=== PATIENT | male | born 1995 | race African-American/Black ===

== ENCOUNTER 2018-09-01 20:27 | Emergency (ER) | payer SELFPAY ==
[~2018-09-01] VITALS: Ht 180.3 cm; Wt 68.0 kg
[2018-09-01 20:56] VITALS: BP 126/70
--- NOTE | 2018-09-01 21:35 | PHYS DOC ---
Adult General Chief Complaint Chief Complaint: TESTICULAR PAIN OR INJURY HPI HPI Patient is a 22 year old male presents for evaluation of right-sided testicular pain for 3 weeks. He states was seen at [facility] emergency room within the last couple of weeks, had an ultrasound and was told it was negative. He left a urine sample and never heard whether his STD testing came back. He is not having any dysuria, urgency, frequency, urethral discharge. (EZ DOLAN APRN) Review of Systems Review of Systems Constitutional: Denies fever or chills [] Eyes: Denies change in visual acuity, redness, or eye pain [] HENT: Denies nasal congestion or sore throat [] Respiratory: Denies cough or shortness of breath [] Cardiovascular: No additional information not addressed in HPI [] GI: Denies abdominal pain, nausea, vomiting, bloody stools or diarrhea [] : Denies dysuria or hematuria , complains of RT testicular pain [] Musculoskeletal: Denies back pain or joint pain [] Integument: Denies rash or skin lesions [] Neurologic: Denies headache, focal weakness or sensory changes [] Endocrine: Denies polyuria or polydipsia [] All other systems were reviewed and found to be within normal limits, except as documented in this note. (EZ DOLAN APRN) Allergies Allergies Allergies Coded Allergies Type Severity Reaction Last Updated Verified No Known Drug Allergies 09/01/18 No (JACK LEIGH MD) Physical Exam Physical Exam Constitutional: Well developed, well nourished, no acute distress, non-toxic appearance. [] Abdomen: Bowel sounds normal, soft, no tenderness, no masses, no pulsatile masses. [] : NORMAL NONTENDER TESTES BILAT, NO TENDERNESS TO CORDS, NORMAL PENIS EXAM, NO URETHRAL DISCHARGE Skin: Warm, dry, no erythema. [] Back: No tenderness, no CVA tenderness. [] Extremities: No tenderness, no cyanosis, no clubbing, ROM intact, no edema. [] Neurologic: Alert and oriented X 3, normal motor function, normal sensory function, no focal deficits noted. [] Psychologic: Affect normal, judgement normal, mood normal. [] (EZ DOLAN APRN) Current Patient Data Vital Signs Vital Signs Date Time Temp Pulse Resp B/P (MAP) Pulse Ox O2 Delivery O2 Flow Rate FiO2 09/01/18 20:56 97.9 59 14 126/70 (88) 98 Room Air 97.9 (JACK LEIGH MD) EKG EKG [] (EZ DOLAN APRN) Radiology/Procedures Radiology/Procedures [] (EZ DOLAN APRN) Course & Med Decision Making Course & Med Decision Making Pertinent Labs and Imaging studies reviewed. (See chart for details) [Discussed with patient need for testicular ultrasound, urine sample, and will repeat STD testing. Patient initially agrees that states doesn't think that he needs a ultrasound because has had one at [facility] recently. Shortly after my exam, the since nurse notified me that patient has decided he does not want any workup for that testicular pain today, he has signed AMA paperwork. Patient understands that he is welcome to come back to the emergency room for evaluation.] (EZ DOLAN APRN) Course & Med Decision Making Staff Physician Addendum: I was working in the ER during the course of this patient's visit. I was available for consultation as needed, but I was not directly involved in the care of this patient. (JACK LEIGH MD) Dragon Disclaimer Dragon Disclaimer This electronic medical record was generated, in whole or in part, using a voice recognition dictation system. (EZ DOLAN APRN) Departure Departure Impression: Primary Impression: Testicular pain, right Disposition: 07 AGAINST MEDICAL ADVICE Referrals: UNKNOWN PCP NAME (PCP) Patient Instructions: Testicular Problems and Self-Exam EZ DOLAN APRN Sep 01, 2018 21:35 JACK LEIGH MD Sep 02, 2018 04:57
== END 2018-09-01 21:29 | disposition left against medical advice (07) ==
LOC: ER 20:27
DX: N50.811 Right testicular pain (principal)
CPT/HCPCS: 99281

== ENCOUNTER 2019-07-09 06:05 | Emergency (ER) | payer BC ==
[~2019-07-09] VITALS: Ht 177.8 cm; Wt 68.2 kg
[2019-07-09 06:21] VITALS: BP 114/59
--- NOTE | 2019-07-09 06:33 | PHYS DOC ---
Past Medical History Past Medical History: No Pertinent History Past Surgical History: No Surgical History Smoking Status: Never Smoker Alcohol Use: None Drug Use: Marijuana Adult General Chief Complaint Chief Complaint: SEXUALLY TRANSMITTED DISEASE HPI HPI Patient is a 23 year old male who presents with complaint of urethral irritation for the last few days. Patient states that he just recently changed sexual partners and had sex without protection. Patient denies any penile discharge. He does indicate that he has some pain with urination however. He denies any testicular pain or abdominal pain. He denies any nausea or vomiting. He also denies fever.[] Review of Systems Review of Systems Constitutional: Denies fever or chills [] Respiratory: Denies cough or shortness of breath [] Cardiovascular: No additional information not addressed in HPI [] GI: Denies abdominal pain, nausea, vomiting or diarrhea [] : Complains of dysuria[] Musculoskeletal: Denies back pain or joint pain [] Integument: Denies rash or skin lesions [] Allergies Allergies Allergies Coded Allergies Type Severity Reaction Last Updated Verified No Known Drug Allergies 09/01/18 No Physical Exam Physical Exam Constitutional: Well developed, well nourished, no acute distress, non-toxic appearance. [] Cardiovascular:Heart rate regular rhythm, no murmur [] Lungs & Thorax: Bilateral breath sounds clear to auscultation [] Extremities: No tenderness, no cyanosis, no clubbing, ROM intact, no edema. [] Neurologic: Alert and oriented X 3, no focal deficits noted. [] Current Patient Data Vital Signs Vital Signs Date Time Temp Pulse Resp B/P (MAP) Pulse Ox O2 Delivery O2 Flow Rate FiO2 07/09/19 06:21 97.7 64 16 114/59 (77) 98 Room Air 97.7 EKG EKG [] Radiology/Procedures Radiology/Procedures [] Course & Med Decision Making Course & Med Decision Making Pertinent Labs and Imaging studies reviewed. (See chart for details) [] Dragon Disclaimer Dragon Disclaimer This electronic medical record was generated, in whole or in part, using a voice recognition dictation system. Departure Departure Impression: Primary Impression: Concern about STD in male without diagnosis Disposition: HOME, SELF-CARE Condition: STABLE Referrals: NO PCP (PCP) Patient Instructions: Sexually Transmitted Disease JENNIFER RAMIREZ Jr. DO Jul 09, 2019 06:33
[2019-07-09 06:46] LABS: BILIRUBIN,URINE NEGATIVE (NEG); CLARITY,URINE CLEAR; COLOR,URINE YELLOW; NITRITE,URINE NEGATIVE (NEG); PH,URINE 5.5; PROTEIN,URINE NEGATIVE (NEG-TRACE); UROBILINOGEN,URINE 0.2 mg/dL (0.2 mg/dL)
[2019-07-09 06:51] LABS: BACTERIA,URINE 0 /HPF (0-FEW); RBC,URINE 0 /HPF (0-2); SQUAMOUS EPITHELIAL CELL,UR OCC /LPF; WBC,URINE OCC /HPF (0-4)
[2019-07-09] MEDS ORDERED: AZITHROMYCIN 250 MG TABLET. PO ONE (07:00)
[2019-07-09] MEDS ORDERED: cefTRIAXone IM 250 MG VIAL IM ONE (07:00)
== END 2019-07-09 07:30 | disposition home or self-care (01) ==
LOC: ER 06:05
DX: R30.9 Painful micturition, unspecified (principal); R30.0 Dysuria; F12.90 Cannabis use, unspecified, uncomplicated; Z20.2 Contact with and (suspected) exposure to infections with a predominantly sexual mode of transmission
CPT/HCPCS: 81001; 87491; 87591; 96372; 99283; J0696